=== PATIENT | male | born 1980 | race African-American/Black ===

== ENCOUNTER → 2021-09-13 | Outpatient (REF) | LOC: M LABSMTC 09:36 | PROVIDERS: ATTEND Pediatrics | DX: Z11.52 Encounter for screening for COVID-19 (principal); Z20.822 Contact with and (suspected) exposure to COVID-19 ==

== ENCOUNTER 2022-10-16 09:05 | Emergency (ER) | payer BC ==
[~2022-10-16] VITALS: Ht 182.9 cm; Wt 97.5 kg
[2022-10-16] MEDS ORDERED: NAPR-837 PO (12:49)
[2022-10-16 13:00] VITALS: BP 155/102
== END 2022-10-16 13:02 | disposition home or self-care (01) ==
LOC: M ED 09:05
DX: M79.18 Myalgia, other site (principal)

== ENCOUNTER 2022-12-05 09:00 | Inpatient (IN) | payer BC ==
[~2022-12-05] VITALS: Ht 185.4 cm; Wt 65.2 kg
[2022-12-05] VITALS (27 sets, daily range): BP systolic 108–133; BP diastolic 67–95; O2SAT 98–100
[~2022-12-05 09:00] MED LIST: ENOXAPARIN 40MG/0.4ML SYRINGE (J1650 PER 10MG) SC SCH; NAPR-837 PO
[2022-12-05] MEDS ORDERED: GI COCKTAIL 50ML BTL(HYOSCYAMINE/MAALOX/LIDOCAINE VISCOUS)(1:3:1) PO ONE (09:30)
[2022-12-05 09:45] LABS: BASO # 0.1 10^3/uL (0.0-0.2); EOS # 0.1 10^3/uL (0.0-0.5); EOS % 1.5 % (0.0-3.0); HEMATOCRIT 45.7 % (42.0-52.0); HEMOGLOBIN 15.2 g/dl (13.5-17.5); LYMPH # 1.5 10^3/uL (1.5-5.0); LYMPH % 25.1 % (24.0-44.0); MEAN CORPUSCULAR HGB CONC 33.3 g/dl (32.0-36.5); MEAN CORPUSCULAR VOLUME 81.3 fl (80.0-96.0); MONO # 0.5 10^3/uL (0.0-0.8); MONO % 8.8 % (2.0-8.0); NEUTROPHILS # 3.8 10^3/uL (1.5-8.5); NEUTROPHILS % 63.3 % (36.0-66.0); PLATELET COUNT, AUTOMATED 151 10^3/uL (150-450); RED BLOOD COUNT 5.62 10^6/uL (4.30-6.10); WHITE BLOOD COUNT 5.9 10^3/uL (4.0-10.0)
[2022-12-05 10:14] LABS: CK-MB VALUE MASS < 1.0 NG/ML (<3.6); LIPASE 24 U/L (12-53)
[2022-12-05 10:16] LABS: ALBUMIN 3.6 G/DL (3.2-5.2); ALKALINE PHOSPHATASE 70 U/L (46-116); ALT/SGPT 40 U/L (7.0-40); AST/SGOT 21 U/L (<34); BILIRUBIN,DIRECT 0.1 MG/DL (<0.4); BILIRUBIN,TOTAL 0.6 MG/DL (0.3-1.2); BLOOD UREA NITROGEN 17 MG/DL (9-23); CARBON DIOXIDE LEVEL 26 MMOL/L (20-31); CHLORIDE LEVEL 109 MMOL/L (98-107); CREATININE FOR GFR 1.49 MG/DL (0.70-1.30); GLOMERULAR FILTRATION RATE > 60.0 (>60); GLUCOSE, FASTING 82 MG/DL (60-100); POTASSIUM SERUM 4.1 MMOL/L (3.5-5.1); SODIUM LEVEL 141 MMOL/L (136-145); TOTAL PROTEIN 7.4 G/DL (5.7-8.2)
[2022-12-05 10:17] LABS: THYROID STIMULATING HORMONE 2.729 uIU/ML (0.55-4.78)
[2022-12-05 10:21] LABS: CPK CREATINE PHOSPHOKINASE 142 U/L (46-171)
[2022-12-05 10:41] LABS: RSV AMPLIFICATION NEGATIVE (NEGATIVE)
[2022-12-05 11:07] LABS: INR 0.91; PROTHROMBIN TIME 12.5 SECONDS (12.5-14.5)
[2022-12-05 11:08] LABS: PARTIAL THROMBOPLASTIN TIME 29.6 SECONDS (24.8-34.2)
[2022-12-05 11:10] LABS: D-DIMER QUANT 1154.73 ng/ml (<500)
[2022-12-05] MEDS ORDERED: ISOVUE-370 76% 100ML VIAL As Ordered ONE (11:45)
[2022-12-05 11:55] LABS: CK-MB VALUE MASS < 1.0 NG/ML (<3.6); CPK CREATINE PHOSPHOKINASE 144 U/L (46-171); MB/CK RELATIVE INDEX 0.69 (< OR =4)
[2022-12-05] MEDS ORDERED: NAPR-885 PO (13:21)
[2022-12-05] MEDS ORDERED: HOME MED LIST COMPLETE! XX SCH (13:25)
[2022-12-05] MEDS ORDERED: MIDAZOLAM INJ 2MG/2ML VIAL As Ordered ONE ×2 (15:57→15:58)
[2022-12-05] MEDS ORDERED: LIDOCAINE 1% MDV 20ML VIAL As Ordered ONE (15:59)
[2022-12-05] MEDS ORDERED: flumazeniL 0.5MG/5ML VIAL As Ordered ONE (16:00)
[2022-12-05] MEDS: MIDAZOLAM 5MG 5ML VIAL (FOR CHEST TUBE INSERTIONS) IV PRN ×2 (16:11→16:13)
[2022-12-05] MEDS ORDERED: ACETAMINOPHEN TAB 650MG DOSE (2X325MG) PO PRN (16:30)
[2022-12-05] MEDS ORDERED: ONDANSETRON 4MG 2ML VIAL IV PRN (16:30)
[2022-12-05] MEDS ORDERED: LEVALBUTEROL 1.25MG 0.5ML CONCENTRATE NEB NEB PRN (16:30)
[2022-12-05] MEDS ORDERED: BISACODYL 10MG SUPP PR PRN (16:30)
[2022-12-05] MEDS ORDERED: KETOROLAC 30 MG/ML 1ML VIAL IV SCH (17:00)
[2022-12-05] MEDS ORDERED: flumazeniL 0.5MG/5ML VIAL IV PRN (17:20)
[2022-12-05] MEDS ORDERED: LIDOCAINE 1% MDV 20ML VIAL SC PRN (17:20)
[2022-12-05] MEDS: MOM 30ML SUSPENSION UDC PO SCH (17:24)
[2022-12-05] MEDS: KCL 20MEQ IN D5/NS 1000ML 1,000 ML IV SCH (17:26)
[2022-12-05] MEDS: IPRATROPIUM 0.5MG/ALBUTEROL 2.5MG INH SOL UD 3ML (DUONEB) NEB SCH (19:32)
[2022-12-05] MEDS ORDERED: LEVALBUTEROL 1.25MG 0.5ML CONCENTRATE NEB NEB SCH (20:00)
[2022-12-05] MEDS: DOCUSATE SODIUM 100MG CAPSULE PO SCH (20:02)
[2022-12-05] MEDS: PERCOCET 5MG/325MG TAB PO PRN (21:23)
[2022-12-06] VITALS (23 sets, daily range): BP systolic 118–131; BP diastolic 61–85; O2SAT 96–100
[2022-12-06] MEDS: IPRATROPIUM 0.5MG/ALBUTEROL 2.5MG INH SOL UD 3ML (DUONEB) NEB SCH ×4 (00:34→19:57)
[2022-12-06] MEDS: KCL 20MEQ IN D5/NS 1000ML 1,000 ML IV SCH (05:51)
[2022-12-06 07:50] LABS: BASO % 0.6 % (0.0-1.0); EOS # 0.1 10^3/uL (0.0-0.5); EOS % 1.5 % (0.0-3.0); HEMATOCRIT 42.8 % (42.0-52.0); LYMPH # 1.2 10^3/uL (1.5-5.0); LYMPH % 17.2 % (24.0-44.0); MEAN CORPUSCULAR HGB CONC 32.7 g/dl (32.0-36.5); MEAN CORPUSCULAR VOLUME 82.5 fl (80.0-96.0); MONO # 0.6 10^3/uL (0.0-0.8); NEUTROPHILS # 5.2 10^3/uL (1.5-8.5); NEUTROPHILS % 72.6 % (36.0-66.0); PLATELET COUNT, AUTOMATED 126 10^3/uL (150-450); RED BLOOD COUNT 5.19 10^6/uL (4.30-6.10); WHITE BLOOD COUNT 7.1 10^3/uL (4.0-10.0)
[2022-12-06 08:18] LABS: BLOOD UREA NITROGEN 14 MG/DL (9-23); CALCIUM LEVEL 8.5 MG/DL (8.5-10.1); CARBON DIOXIDE LEVEL 25 MMOL/L (20-31); CHLORIDE LEVEL 106 MMOL/L (98-107); CREATININE FOR GFR 1.45 MG/DL (0.70-1.30); GLOMERULAR FILTRATION RATE > 60.0 (>60); GLUCOSE, FASTING 151 MG/DL (60-100); POTASSIUM SERUM 4.3 MMOL/L (3.5-5.1); SODIUM LEVEL 139 MMOL/L (136-145)
[2022-12-06] MEDS: DOCUSATE SODIUM 100MG CAPSULE PO SCH ×2 (08:35→20:36)
[2022-12-06] MEDS: MOM 30ML SUSPENSION UDC PO SCH (08:35)
[2022-12-06] MEDS: PANTOPRAZOLE 40MG TAB (PROTONIX) PO SCH (08:35)
[2022-12-06] MEDS: PERCOCET 5MG/325MG TAB PO PRN ×3 (08:36→16:30)
[2022-12-06] MEDS ORDERED: ENOXAPARIN 40MG/0.4ML SYRINGE (J1650 PER 10MG) SC SCH (09:00)
[2022-12-07] VITALS (24 sets, daily range): BP systolic 108–133; BP diastolic 70–77; O2SAT 95–99
[2022-12-07] MEDS: IPRATROPIUM 0.5MG/ALBUTEROL 2.5MG INH SOL UD 3ML (DUONEB) NEB SCH ×4 (01:10→19:44)
[2022-12-07 05:42] LABS: BASO % 0.7 % (0.0-1.0); EOS # 0.2 10^3/uL (0.0-0.5); EOS % 2.8 % (0.0-3.0); HEMATOCRIT 43.2 % (42.0-52.0); HEMOGLOBIN 14.1 g/dl (13.5-17.5); LYMPH # 1.8 10^3/uL (1.5-5.0); LYMPH % 31.5 % (24.0-44.0); MEAN CORPUSCULAR HEMOGLOBIN 26.8 pg (27.0-33.0); MEAN CORPUSCULAR HGB CONC 32.6 g/dl (32.0-36.5); MONO # 0.7 10^3/uL (0.0-0.8); MONO % 11.8 % (2.0-8.0); PLATELET COUNT, AUTOMATED 129 10^3/uL (150-450); RED BLOOD COUNT 5.27 10^6/uL (4.30-6.10); WHITE BLOOD COUNT 5.7 10^3/uL (4.0-10.0)
[2022-12-07 06:05] LABS: BLOOD UREA NITROGEN 11 MG/DL (9-23); CALCIUM LEVEL 8.5 MG/DL (8.5-10.1); CARBON DIOXIDE LEVEL 29 MMOL/L (20-31); CHLORIDE LEVEL 107 MMOL/L (98-107); CREATININE FOR GFR 1.61 MG/DL (0.70-1.30); GLOMERULAR FILTRATION RATE > 60.0 (>60); GLUCOSE, FASTING 73 MG/DL (60-100); POTASSIUM SERUM 4.1 MMOL/L (3.5-5.1); SODIUM LEVEL 141 MMOL/L (136-145)
[2022-12-07] MEDS: PERCOCET 5MG/325MG TAB PO PRN ×3 (06:10→18:23)
[2022-12-07] MEDS: HEPARIN SOD (PORCINE) 5000UNITS/ML 1ML VIAL/SYRINGE SQ SCH ×3 (08:26→22:28)
[2022-12-07] MEDS: DOCUSATE SODIUM 100MG CAPSULE PO SCH ×2 (08:27→22:29)
[2022-12-07] MEDS: PANTOPRAZOLE 40MG TAB (PROTONIX) PO SCH (08:27)
[2022-12-07] MEDS: MOM 30ML SUSPENSION UDC PO SCH (08:27)
[2022-12-07] MEDS: NS 1,000 ML IV SCH (11:21)
[2022-12-08] VITALS (9 sets, daily range): BP systolic 112–132; BP diastolic 72–80; O2SAT 93–96
[2022-12-08] MEDS: NS 1,000 ML IV SCH (01:31)
[2022-12-08] MEDS: IPRATROPIUM 0.5MG/ALBUTEROL 2.5MG INH SOL UD 3ML (DUONEB) NEB SCH ×4 (01:43→19:46)
[2022-12-08] MEDS: HEPARIN SOD (PORCINE) 5000UNITS/ML 1ML VIAL/SYRINGE SQ SCH ×3 (06:09→21:45)
[2022-12-08 06:40] LABS: BASO # 0.1 10^3/uL (0.0-0.2); BASO % 1.4 % (0.0-1.0); EOS # 0.2 10^3/uL (0.0-0.5); EOS % 3.2 % (0.0-3.0); HEMATOCRIT 43.4 % (42.0-52.0); LYMPH # 1.7 10^3/uL (1.5-5.0); LYMPH % 34.7 % (24.0-44.0); MEAN CORPUSCULAR HEMOGLOBIN 26.7 pg (27.0-33.0); MEAN CORPUSCULAR HGB CONC 32.3 g/dl (32.0-36.5); MEAN CORPUSCULAR VOLUME 82.8 fl (80.0-96.0); MONO # 0.5 10^3/uL (0.0-0.8); MONO % 10.1 % (2.0-8.0); NEUTROPHILS # 2.5 10^3/uL (1.5-8.5); NEUTROPHILS % 50.2 % (36.0-66.0); PLATELET COUNT, AUTOMATED 129 10^3/uL (150-450); RED BLOOD COUNT 5.24 10^6/uL (4.30-6.10); WHITE BLOOD COUNT 4.9 10^3/uL (4.0-10.0)
[2022-12-08 07:00] LABS: BLOOD UREA NITROGEN 11 MG/DL (9-23); CALCIUM LEVEL 8.8 MG/DL (8.5-10.1); CARBON DIOXIDE LEVEL 29 MMOL/L (20-31); CHLORIDE LEVEL 106 MMOL/L (98-107); GLOMERULAR FILTRATION RATE > 60.0 (>60); GLUCOSE, FASTING 81 MG/DL (60-100); POTASSIUM SERUM 4.2 MMOL/L (3.5-5.1); SODIUM LEVEL 140 MMOL/L (136-145)
[2022-12-08] MEDS: DOCUSATE SODIUM 100MG CAPSULE PO SCH ×2 (09:00→21:00)
[2022-12-08] MEDS: MOM 30ML SUSPENSION UDC PO SCH (09:00)
[2022-12-08] MEDS: PANTOPRAZOLE 40MG TAB (PROTONIX) PO SCH (09:02)
[2022-12-08] MEDS: PERCOCET 5MG/325MG TAB PO PRN (14:53)
[2022-12-09 00:25] VITALS: BP 128/69
[2022-12-09] MEDS: IPRATROPIUM 0.5MG/ALBUTEROL 2.5MG INH SOL UD 3ML (DUONEB) NEB SCH ×3 (01:08→13:35)
[2022-12-09] MEDS: PERCOCET 5MG/325MG TAB PO PRN (04:22)
[2022-12-09] MEDS: HEPARIN SOD (PORCINE) 5000UNITS/ML 1ML VIAL/SYRINGE SQ SCH ×2 (05:26→13:13)
[2022-12-09 06:15] LABS: BASO # 0.1 10^3/uL (0.0-0.2); BASO % 0.9 % (0.0-1.0); EOS # 0.2 10^3/uL (0.0-0.5); EOS % 3.6 % (0.0-3.0); HEMATOCRIT 46.1 % (42.0-52.0); HEMOGLOBIN 15.2 g/dl (13.5-17.5); LYMPH # 1.6 10^3/uL (1.5-5.0); LYMPH % 29.5 % (24.0-44.0); MEAN CORPUSCULAR HEMOGLOBIN 26.8 pg (27.0-33.0); MEAN CORPUSCULAR VOLUME 81.3 fl (80.0-96.0); MONO # 0.6 10^3/uL (0.0-0.8); MONO % 10.5 % (2.0-8.0); NEUTROPHILS # 3.1 10^3/uL (1.5-8.5); NEUTROPHILS % 55.3 % (36.0-66.0); PLATELET COUNT, AUTOMATED 145 10^3/uL (150-450); RED BLOOD COUNT 5.67 10^6/uL (4.30-6.10); WHITE BLOOD COUNT 5.6 10^3/uL (4.0-10.0)
[2022-12-09 06:46] LABS: BLOOD UREA NITROGEN 14 MG/DL (9-23); CALCIUM LEVEL 9.4 MG/DL (8.5-10.1); CARBON DIOXIDE LEVEL 30 MMOL/L (20-31); CHLORIDE LEVEL 103 MMOL/L (98-107); CREATININE FOR GFR 1.56 MG/DL (0.70-1.30); GLOMERULAR FILTRATION RATE > 60.0 (>60); GLUCOSE, FASTING 96 MG/DL (60-100); POTASSIUM SERUM 4.5 MMOL/L (3.5-5.1); SODIUM LEVEL 139 MMOL/L (136-145)
[2022-12-09 07:49] VITALS: BP 131/72
[2022-12-09] MEDS: MOM 30ML SUSPENSION UDC PO SCH (08:07)
[2022-12-09] MEDS: PANTOPRAZOLE 40MG TAB (PROTONIX) PO SCH (08:07)
[2022-12-09] MEDS: DOCUSATE SODIUM 100MG CAPSULE PO SCH (08:07)
[2022-12-09] MEDS ORDERED: ACET-683 PO (14:00)
[2022-12-09 14:38] VITALS: BP 120/75
== END 2022-12-09 15:38 | disposition home or self-care (01) | DRG 143 ==
LOC: M ED 09:00 → M ED INP 13:36 → M PCU 14:58
PROVIDERS: ADMIT Internal Medicine; ATTEND Internal Medicine
PROC: 0W9930Z Drainage of Right Pleural Cavity with Drainage Device, Percutaneous Approach (ICD-10-PCS; principal; 2022-12-06)
DX: J93.11 Primary spontaneous pneumothorax (principal); J98.11 Atelectasis; M54.31 Sciatica, right side; Z20.822 Contact with and (suspected) exposure to COVID-19; Z79.899 Other long term (current) drug therapy; Z83.3 Family history of diabetes mellitus; Z86.16 Personal history of COVID-19

== ENCOUNTER → 2022-12-20 | Outpatient (CLI) | payer BC ==
[~2022-12-20] MED LIST changes: +ACET-683 PO; -ENOXAPARIN 40MG/0.4ML SYRINGE (J1650 PER 10MG) SC SCH; +NAPR-885 PO
== END ==
LOC: M PLAIMG 09:48
PROVIDERS: ATTEND Thoracic Surgery (Cardiothoracic Vascular Surgery)
DX: J93.9 Pneumothorax, unspecified (principal)

== ENCOUNTER 2023-01-24 08:05 | Emergency (ER) | payer BC ==
[~2023-01-24] VITALS: Ht 182.9 cm; Wt 93.5 kg
[2023-01-24 08:05] VITALS: TEMP 97.1
[2023-01-24 12:57] VITALS: BP 138/98; O2SAT 100
== END 2023-01-24 12:59 | disposition home or self-care (01) ==
LOC: M ED 08:05
DX: H61.23 Impacted cerumen, bilateral (principal)

== ENCOUNTER → 2023-12-03 | Outpatient (CLI) | payer BC | LOC: M SLEEP HO 11:03 | PROVIDERS: ATTEND Family Medicine | DX: R06.83 Snoring (principal) ==

== ENCOUNTER 2024-03-23 06:23 | Emergency (ER) | payer BC ==
[~2024-03-23] VITALS: Ht 185.4 cm; Wt 96.4 kg
[2024-03-23 08:24] LABS: BASO % 0.7 % (0.0-1.0); EOS # 0.1 10^3/uL (0.0-0.5); EOS % 1.2 % (0.0-3.0); HEMATOCRIT 44.6 % (42.0-52.0); HEMOGLOBIN 14.6 g/dl (13.5-17.5); LYMPH # 1.4 10^3/uL (1.5-5.0); LYMPH % 23.9 % (24.0-44.0); MEAN CORPUSCULAR HEMOGLOBIN 26.6 pg (27.0-33.0); MEAN CORPUSCULAR HGB CONC 32.7 g/dl (32.0-36.5); MEAN CORPUSCULAR VOLUME 81.2 fl (80.0-96.0); MONO # 0.5 10^3/uL (0.0-0.8); MONO % 8.5 % (2.0-8.0); NEUTROPHILS # 3.7 10^3/uL (1.5-8.5); NEUTROPHILS % 65.3 % (36.0-66.0); PLATELET COUNT, AUTOMATED 146 10^3/uL (150-450); RED BLOOD COUNT 5.49 10^6/uL (4.30-6.10); WHITE BLOOD COUNT 5.7 10^3/uL (4.0-10.0)
[2024-03-23 08:45] LABS: CK-MB VALUE MASS 1.8 NG/ML (<3.6)
[2024-03-23 08:46] LABS: CALCIUM LEVEL 9.4 MG/DL (8.5-10.1); CREATININE FOR GFR 1.42 MG/DL (0.70-1.30); GLOMERULAR FILTRATION RATE 57.9 (>60); MB/CK RELATIVE INDEX 0.82 (< OR =4); POTASSIUM SERUM 4.5 MMOL/L (3.5-5.1)
[2024-03-23] MEDS: KETOROLAC 30 MG/ML 1ML VIAL IM ONE (10:39)
[2024-03-23] MEDS ORDERED: METH-1165 PO (11:12)
[2024-03-23] MEDS ORDERED: KETO10TAB PO (11:12)
[2024-03-23] MEDS ORDERED: ASPE4PAD TOP (11:13)
[2024-03-23 11:29] VITALS: BP 123/84; TEMP 96.6; O2SAT 98
== END 2024-03-23 11:48 | disposition home or self-care (01) ==
LOC: M ED 06:23
DX: S39.012A Strain of muscle, fascia and tendon of lower back, initial encounter (principal); M62.830 Muscle spasm of back; X58.XXXA Exposure to other specified factors, initial encounter; Y92.9 Unspecified place or not applicable; Y93.9 Activity, unspecified; Y99.9 Unspecified external cause status
CPT/HCPCS: 71045; 80048; 82550; 82553; 84484; 85025; 93005; 96372; 99284; J1885